=== PATIENT | male | born 1950 | race Caucasian/White ===

== ENCOUNTER 2018-06-08 13:54 | Emergency (ER) | payer OTHER ==
[~2018-06-08] VITALS: Ht 180.3 cm; Wt 90.0 kg
[~2018-06-08 13:54] MED LIST: AMOX/K CLAV875 M1 PO; CIPRODEX1 ML AD; DIOVAN40 MG PO; FLEXERIL OR; KEFLEX500 MG PO; LIPITOR20 MG PO; LORTAB 5 PO; NAPROXEN500 MG PO; PREDNISONE20 MG PO
[2018-06-08 15:03] LABS: URINE BILIRUBIN - DIPSTICK NEGATIVE (NEGATIVE); URINE BLOOD DIPSTICK NEGATIVE (NEGATIVE); URINE COLOR YELLOW; URINE GLUCOSE - DIPSTICK NEGATIVE (NEGATIVE); URINE KETONE NEGATIVE (NEGATIVE); URINE LEUK ESTERASE TRACE (NEGATIVE); URINE NITRITE - DIPSTICK NEGATIVE (Negative); URINE PH 5.5 (4.5-8.0); URINE PROTEIN - DIPSTICK NEGATIVE (NEG-TRACE); URINE UROBILINOGEN - DIPSTICK 0.2 E.U./dL (0.2)
[2018-06-08 15:31] LABS: HEMATOCRIT 42.6 % (39.0-50.0); HEMOGLOBIN 14.2 g/dl (14.0-18.0); IMMATURE GRANULOCYTES 0.5 % (0.0-5.0); MEAN CORPUSCULAR HGB 30.3 pG CALC (26.0-32.0); MEAN CORPUSCULAR HGB CONC 33.3 g/L CALC (32.0-36.0); NEUT# 7.26 thou/uL (1.82-7.42); RED BLOOD COUNT 4.68 mill/uL (4.70-6.10); RED CELL DISTRI WIDTH 12.5 % (11.5-15.5)
[2018-06-08 16:14] LABS: ALBUMIN 4.2 g/dL (3.2-5.0); ALKALINE PHOSPHATASE 96 u/l (38-126); ANION GAP 16 (6-22 (CALC)); BILIRUBIN, TOTAL 0.5 mg/dL (0.0-1.4); BUN 16 mg/dL (8-23); BUN/CREATININE RATIO 18 (12-20 (CALC)); CARBON DIOXIDE 26 mmol/l (22-30); CHLORIDE 99 mmol/l (95-108); CREATININE 0.9 mg/dL (0.7-1.3); GFR > 60 ML/MIN (>=60 (CALC)); GFR FOR AFR.AMER. > 60 ML/MIN (>=60 (CALC)); POTASSIUM 4.3 mmol/l (3.5-5.1); SGOT/AST 38 u/l (19-48); SODIUM 137 mmol/l (137-146); TOTAL PROTEIN 7.1 g/dL (6.3-8.2)
[2018-06-08] MEDS ORDERED: METRONIDAZOL500 MG PO (17:10)
[2018-06-08] MEDS ORDERED: CIPROFLOXACN500 MG PO (17:10)
[2018-06-08] MEDS ORDERED: NAPROSYN500 MG PO (17:18)
[2018-06-08 17:29] VITALS: BP 143/78
== END 2018-06-08 17:38 | disposition home or self-care (01) | DRG 392 ==
LOC: ED 13:54
PROVIDERS: Emergency Medicine
DX: K57.32 Diverticulitis of large intestine without perforation or abscess without bleeding (principal); R10.30 Lower abdominal pain, unspecified
CPT/HCPCS: Q9967

== ENCOUNTER 2018-07-02 13:16 | Emergency (ER) | payer OTHER ==
[~2018-07-02] VITALS: Ht 180.3 cm; Wt 90.9 kg
[~2018-07-02 13:16] MED LIST changes: +CIPROFLOXACN500 MG PO; +METRONIDAZOL500 MG PO; +NAPROSYN500 MG PO
[2018-07-02 14:46] VITALS: BP 117/73
== END 2018-07-02 14:46 | disposition home or self-care (01) | DRG 566 ==
LOC: ED 13:16
DX: M77.31 Calcaneal spur, right foot (principal); I10 Essential (primary) hypertension